=== PATIENT | male | born 1940 | race Caucasian/White ===

== ENCOUNTER 2016-12-02 16:46 | Emergency (ER) | payer OTHER ==
[~2016-12-02] VITALS: Ht 162.6 cm; Wt 62.6 kg
[~2016-12-02 16:46] MED LIST: CYANOCOBALAM1000 MCG PO; HYDROCODON-ACE1 EAC7 PO; SENNA PLUS TAB1 EACH PO; VITAMIN B-122500 MCG SL; VITAMIN D31000 UNI2 PO; ZYLOPRIM100 MG PO; ZYLOPRIM300 MG PO; predniSONE PO
[2016-12-02 18:43] LABS: HEMATOCRIT 37.1 % (38.0-50.0); MCH 32.9 PG (29.0-34.0); MCHC 34.2 G/DL (30.0-36.0); MCV 96.1 FL (86-99); MEAN PLAT.VOLUME 9.7 uM^3 (9.0-12.4); RBC DIS.WIDTH-SD 49.3 % (39-53); RED BLOOD COUNT 3.86 M/uL (4.00-5.50)
[2016-12-02 18:44] LABS: PLATELET COUNT 136 K/uL (156-360)
[2016-12-02 18:58] LABS: CHLORIDE 107 mEq/L (99-109); POTASSIUM 4.4 mEq/L (3.7-5.4); SODIUM 139 mEq/L (136-147)
[2016-12-02 19:02] LABS: ANION GAP 9 MEQ/L (2-14); TOTAL BILIRUBIN 2.6 mg/dL (0.0-1.0)
[2016-12-02 19:04] LABS: ALKALINE PHOSPHATASE 91 IU/L (3-129); GFR ESTIMATE (CALCULATED) 39 mL/min/
[2016-12-02 19:05] LABS: UREA NITROGEN (BUN) 40 mg/dL (9-23)
[2016-12-02 19:11] LABS: GLUCOSE 117 mg/dL (70-99)
[2016-12-02 23:33] LABS: ADD MIUA? YES; BILIRUBIN NEGATIVE; BLOOD NEGATIVE; COLOR YELLOW ((YELLOW)); GLUCOSE (STRIP) NEGATIVE; KETONES NEGATIVE; LEUKOCYTES NEGATIVE; NITRITE NEGATIVE; PROTEIN (STRIP) 30; SPECIFIC GRAVITY 1.023 (1.000-1.030); UROBILINOGEN 0.2 MG/DL (0.2-1.0)
[2016-12-02 23:39] LABS: BACTERIA NONE SEEN /HPF; EPITHELIAL CELLS RARE /HPF; HYALINE CASTS 0-5 /LPF; MUCUS TRACE /LPF; UCUL ADDED? YES
[2016-12-03] MEDS ORDERED: CIPRO500 MG PO (02:06)
[2016-12-03 02:25] VITALS: BP 110/75
== END 2016-12-03 02:26 | disposition home or self-care (01) ==
LOC: EME 16:46
DX: K59.00 Constipation, unspecified (principal); N39.0 Urinary tract infection, site not specified; N28.9 Disorder of kidney and ureter, unspecified; N13.2 Hydronephrosis with renal and ureteral calculous obstruction; C61 Malignant neoplasm of prostate; F41.9 Anxiety disorder, unspecified; Z96.651 Presence of right artificial knee joint; Z92.3 Personal history of irradiation
CPT/HCPCS: 74020; 74176; 80053; 81003; 85027; 87086; 99281; 99284

== ENCOUNTER 2016-12-03 16:43 | Emergency (ER) | payer OTHER ==
[~2016-12-03] VITALS: Ht 162.6 cm; Wt 63.1 kg
[~2016-12-03 16:43] MED LIST changes: +CIPRO500 MG PO
[2016-12-03 17:36] LABS: HEMATOCRIT 39.4 % (38.0-50.0); MCH 32.5 PG (29.0-34.0); MCHC 34.3 G/DL (30.0-36.0); MCV 94.7 FL (86-99); MEAN PLAT.VOLUME 10.1 uM^3 (9.0-12.4); PLATELET COUNT 158 K/uL (156-360); RBC DIS.WIDTH-CV 13.8 % (11.8-14.6); RBC DIS.WIDTH-SD 48.5 % (39-53); RED BLOOD COUNT 4.16 M/uL (4.00-5.50); WHITE BLOOD COUNT 8.9 K/uL (4.1-10.2)
[2016-12-03 17:43] LABS: CHLORIDE 102 mEq/L (99-109); POTASSIUM 3.8 mEq/L (3.7-5.4)
[2016-12-03 17:44] LABS: SODIUM 138 mEq/L (136-147)
[2016-12-03 17:46] LABS: GLUCOSE 150 mg/dL (70-99)
[2016-12-03 17:47] LABS: ANION GAP 12 MEQ/L (2-14)
[2016-12-03 17:48] LABS: TOTAL BILIRUBIN 2.5 mg/dL (0.0-1.0)
[2016-12-03 17:49] LABS: ALKALINE PHOSPHATASE 105 IU/L (3-129); GFR ESTIMATE (CALCULATED) 42 mL/min/
[2016-12-03 17:51] LABS: UREA NITROGEN (BUN) 38 mg/dL (9-23)
[2016-12-03 17:53] LABS: LIPASE 16 U/L (1.0-51.0)
[2016-12-03 22:17] VITALS: BP 117/86
== END 2016-12-03 22:18 | disposition home or self-care (01) ==
LOC: EME 16:43
DX: K59.00 Constipation, unspecified (principal); F41.9 Anxiety disorder, unspecified; Z85.46 Personal history of malignant neoplasm of prostate; Z96.651 Presence of right artificial knee joint
CPT/HCPCS: 74020; 80053; 81003; 83690; 85027; 99281; 99285; J2405; J7030

== ENCOUNTER → 2017-07-16 | Outpatient (CLI) | payer MEDICARE, OTHER | END | disposition home or self-care (01) | LOC: CDC 10:05 | DX: Z01.810 Encounter for preprocedural cardiovascular examination (principal); D49.4 Neoplasm of unspecified behavior of bladder; R94.31 Abnormal electrocardiogram [ECG] [EKG] | CPT/HCPCS: 93000 ==